=== PATIENT | female | born 1945 | race Caucasian/White ===

== ENCOUNTER 2017-10-20 14:24 | Emergency (ER) | payer OTHER ==
[~2017-10-20] VITALS: Ht 154.9 cm; Wt 75.9 kg
[2017-10-20 16:53] VITALS: BP 138/78
== END 2017-10-20 16:54 | disposition home or self-care (01) ==
LOC: ER 14:25
DX: S20.212A Contusion of left front wall of thorax, initial encounter (principal); S80.02XA Contusion of left knee, initial encounter; Z88.0 Allergy status to penicillin; V89.2XXA Person injured in unspecified motor-vehicle accident, traffic, initial encounter; Y93.89 Activity, other specified; Y92.89 Other specified places as the place of occurrence of the external cause; Y99.8 Other external cause status
CPT/HCPCS: 71046; 73564; 93005; 99284

== ENCOUNTER 2020-08-20 11:04 | Emergency (ER) | payer MEDICARE, BC ==
[~2020-08-20] VITALS: Ht 154.9 cm; Wt 73.4 kg
[2020-08-20 11:19] VITALS: BP 115/65
[2020-08-20] MEDS ORDERED: AMOX-580 PO (13:12)
[2020-08-20] MEDS ORDERED: TETanus/Pertussis (Acell)/Diphther VAC/PF (Tdap-Adult) 0.5ml syringe IMVAC ONE (13:15)
== END 2020-08-20 13:23 | disposition home or self-care (01) ==
LOC: ER 11:09
DX: L03.012 Cellulitis of left finger (principal); Z88.0 Allergy status to penicillin; Z79.899 Other long term (current) drug therapy; W54.0XXA Bitten by dog, initial encounter; Y93.89 Activity, other specified; Y92.89 Other specified places as the place of occurrence of the external cause; Y99.8 Other external cause status
CPT/HCPCS: 90471; 90715; 99283

== ENCOUNTER 2021-01-24 12:47 | Inpatient (IN) | payer MEDICARE, BC ==
[2021-01-24] VITALS (12 sets, daily range): BP systolic 118–148; BP diastolic 59–96
[~2021-01-24] VITALS: Ht 154.9 cm; Wt 70.5 kg
[2021-01-24] MEDS ORDERED: normal saline 1000ML IV soln IVB ONE (13:10)
[2021-01-24] MEDS ORDERED: ondansetron/PF 4mg/2ml inj IV ONE ×2 (13:10→16:40)
[2021-01-24 13:37] LABS: BASOPHILS % (AUTO) 0.1 % (0-1); EOSINOPHILS # (AUTO) 0.1 X10'3 (0-0.9); EOSINOPHILS % (AUTO) 0.3 % (0-6); HEMOGLOBIN 12.7 g/dl (12.0-16.0); LYMPHOCYTES % (AUTO) 6.5 % (21-51); MEAN CORPUSCULAR HEMOGLOBIN 29.8 PG (27.0-31.0); MEAN CORPUSCULAR HGB CONC 33.3 g/dL (33.0-36.5); MEAN CORPUSCULAR VOLUME 89.3 FL (78-98); MEAN PLATELET VOLUME 8.4 FL (7.4-10.4); MONOCYTES # (AUTO) 0.9 X10'3 (0-0.9); MONOCYTES % (AUTO) 5.8 % (2-12); NEUTROPHILS % (AUTO) 87.3 % (42-75); PLATELET COUNT 271 X10'3 (140-440); RED BLOOD COUNT 4.26 X10'6 (4.20-5.60); RED CELL DISTRIBUTION WIDTH 13.7 % (11.5-14.5); WHITE BLOOD COUNT 14.9 X10'3 (4.5-11.0)
[2021-01-24 13:52] LABS: ALANINE AMINOTRANSFERASE 17 U/L (12-78); ALBUMIN 3.3 G/DL (3.4-5.0); ALBUMIN/GLOBULIN RATIO 0.7 (1.1-1.5); ALKALINE PHOSPHATASE 115 IU/L (46-116); ANION GAP 13 (8-16); ASPARTATE AMINO TRANSFERASE 13 U/L (10-37); BILIRUBIN,TOTAL 0.6 MG/DL (0.1-1.0); BLOOD UREA NITROGEN 18 MG/DL (7-18); BUN/CREATININE RATIO 17.3 (6.6-38.0); CALCIUM 9.4 MG/DL (8.5-10.1); CHLORIDE 96 MMOL/L (99-107); CREATININE 1.04 MG/DL (0.40-0.90); GLUCOSE 136 MG/DL (70-104); LIPASE < 50 U/L (73-393); POTASSIUM 3.8 MMOL/L (3.5-5.1); SODIUM 134 MMOL/L (135-145); TOTAL PROTEIN 8.2 G/DL (6.4-8.2); eGFR 52 ML/MIN
[2021-01-24] MEDS ORDERED: cefepime 2g/NS 100ml ADVANTAGE 100 ML IV STA (16:21)
[2021-01-24] MEDS ORDERED: normal saline 1000ML IV soln IV ONE ×2 (16:25→16:45)
[2021-01-24] MEDS ORDERED: morphine 4 MG/ML inj SYRINge IV ONE (16:40)
[2021-01-24] MEDS ORDERED: SIMV-42 PO (17:13)
[2021-01-24] MEDS ORDERED: TOPI25TA49 PO (17:13)
[2021-01-24] MEDS ORDERED: ESCI20TA39 PO (17:13)
[2021-01-24] MEDS ORDERED: HYDR-3972 PO (17:13)
[2021-01-24] MEDS ORDERED: IMIP100C4 PO (17:13)
[2021-01-24] MEDS ORDERED: LISI-790 PO (17:13)
[2021-01-24] MEDS ORDERED: GABA-530 PO (17:13)
[2021-01-24] MEDS: morphine 4 MG/ML inj SYRINge IV PRN (17:27)
[2021-01-24] MEDS ORDERED: HYDROcodone/acetaminophen 5mg/325mg tablet PO PRN (17:30)
[2021-01-24] MEDS ORDERED: mag hydrox/Alum hydrox/simeth 30ml oral suspension PO PRN (17:30)
[2021-01-24] MEDS ORDERED: magnesium hydroxide 30ml (MOM) UD suspension PO PRN (17:30)
[2021-01-24] MEDS ORDERED: acetaminophen 325mg tablet PO PRN ×2 (17:30)
[2021-01-24] MEDS ORDERED: morphine 2 MG/ML inj. syringe IV PRN ×2 (17:30→17:50)
[2021-01-24] MEDS ORDERED: HYDROcodone/acetaminophen 10/325mg tab PO PRN ×2 (17:35→20:05)
[2021-01-24] MEDS ORDERED: ringers solution, lacted 1,000 ML IV SCH (17:50)
[2021-01-24] MEDS ORDERED: meperidine/PF 25mg/ml syringe IV PRN ×3 (17:50)
[2021-01-24] MEDS ORDERED: morphine 4 MG/ML inj SYRINge IV PRN (17:50)
[2021-01-24] MEDS ORDERED: proCHLORperazine 10 MG/2 ml inj IV PRN (17:50)
[2021-01-24] MEDS ORDERED: ondansetron/PF 4mg/2ml inj IV PRN ×2 (17:50→20:05)
--- NOTE | 2021-01-24 18:04 | NUR ---
pt taken to OR
[2021-01-24] MEDS ORDERED: BUPIVAcaine 0.5% inj/PF 30 ML ONE (18:17)
[2021-01-24] MEDS ORDERED: dexamethasone sod phosphate 10mg/ml inj ONE (18:36)
[2021-01-24] MEDS ORDERED: desflurane 240ml liquid inh. IH ONE (18:36)
[2021-01-24] MEDS ORDERED: neostigmine methylsulfate 1 MG/ML 10ml vial ONE (18:36)
[2021-01-24] MEDS ORDERED: glycopyrrolate 0.2mg/ml inj ONE (18:36)
[2021-01-24] MEDS ORDERED: fentaNYL/PF 50MCG/1 ML 2ML syringe ONE (18:42)
[2021-01-24] MEDS ORDERED: midazolam 1 mg/ML 2ml injection ONE (18:42)
[2021-01-24] MEDS ORDERED: propofol inj 20 ML IV ONE (18:43)
[2021-01-24] MEDS ORDERED: LIDOcaine 2% (20mg/ml) 5ml vial ONE (18:43)
[2021-01-24] MEDS ORDERED: rocuronium 10mg/ml inj IV ONE (18:46)
[2021-01-24] MEDS ORDERED: ondansetron/PF 4mg/2ml inj ONE (18:52)
[2021-01-24] MEDS ORDERED: clindamycin phosphate 150mg/ml inj. ONE (19:00)
[2021-01-24] MEDS ORDERED: meperidine/PF 25mg/ml syringe ONE (19:37)
[2021-01-24] MEDS ORDERED: BUPIVACAINE liposomal/PF 13.3 MG/ML vial IM ONE (19:43)
--- NOTE | 2021-01-24 20:25 | NUR ---
Received from OR via BED, accompanied by Anesthesiologist MARLO and report given by Anesthesiolgist. PT DROWSY, OXYGENATING WELL ON 10 LPM O2 VIA MASK, NO RESP DISTRESS NOTED. DENIES NAUSEA AT THIS TIME, VERY MILD INCISIONAL PAIN, PT HAD TAP BLOCK DONE IN OR. BULKY DSG TO MIDLINE ABD, CDI. MARIA DEL ROSARIO DRAIN TO ABDOMEN, GOOD SX. SM SERO/SANG OUTPUT. FC PATENT, SCDS ON. VSS.
--- NOTE | 2021-01-24 21:01 | NUR ---
Received report from Jazmin SYLVESTER in the recovery room. nursing clinical director stated that she is not sure where her belongings went and that she would contact the ER to see if they were returned to there. Pt arrived on her bed with her at bedside, A/O x4. She was on 2L oxygen via nasal cannula, with NS running @ 100 mls/hr. Dressing to abdomen was CD&I. Pt has no signs of distress, will continue to monitor.
--- NOTE | 2021-01-24 21:25 | NUR ---
Report called to receiving nurse. Transferred via BED. Belongings, 1 BAG OF CLOTHING. NOT WITH SPOUSE, ATTEMPTING TO LOCATE. OR CHG NURSE AND FLOOR RN AWARE. PAIN LEVEL CREEPING UP, PT MEDICATED WITH IVP DEMEROL PRIOR TO TRANSFER. TOLERATING ICE CHIPS WELL. VSS. AT BEDSIDE. TRANSFERRED TO 3 [facility] IN STABLE CONDITION. Special Issues communicated to receiving nurse.
[2021-01-24] MEDS: docusate sod 100mg capsule PO SCH (22:48)
[2021-01-24] MEDS: atorvastatin 10mg tablet PO SCH (22:49)
[2021-01-24] MEDS: morphine 2 MG/ML inj. syringe IV PRN (22:50)
[2021-01-24] MEDS: potassium CL 20mEq in D5-1/2NS 1,000 ML IV SCH (23:01)
[2021-01-24] MEDS: dextrose 5%-1/2 normal saline 1,000 ML IV SCH (23:20)
[2021-01-24] MEDS: imipramine 25mg tablet PO SCH (23:24)
[2021-01-25] VITALS (8 sets, daily range): BP systolic 105–156; BP diastolic 62–85
[2021-01-25] MEDS ORDERED: cefoxitin sod inj 2,000 MG in normal saline 100ml IV soln 100 ML IV SCH ×2
[2021-01-25] MEDS: metroNIDAZOLE-Flagyl 500mg/NS 100 ML IV SCH ×3 (00:01→17:01)
[2021-01-25] MEDS: HYDROcodone/acetaminophen 10/325mg tab PO PRN ×4 (01:44→17:02)
[2021-01-25] MEDS: dextrose 5%-1/2 normal saline 1,000 ML IV SCH ×2 (03:30→13:30)
[2021-01-25] MEDS: potassium CL 20mEq in D5-1/2NS 1,000 ML IV SCH ×2 (04:05→10:23)
[2021-01-25 05:41] LABS: BASOPHILS % (AUTO) 0.1 % (0-1); EOSINOPHILS % (AUTO) 0 % (0-6); HEMATOCRIT 33.5 % (35.0-45.0); HEMOGLOBIN 11.1 g/dl (12.0-16.0); LYMPHOCYTES # (AUTO) 0.5 X10'3 (1.1-4.8); LYMPHOCYTES % (AUTO) 4.1 % (21-51); MEAN CORPUSCULAR HEMOGLOBIN 29.9 PG (27.0-31.0); MEAN CORPUSCULAR HGB CONC 33.3 g/dL (33.0-36.5); MEAN CORPUSCULAR VOLUME 89.8 FL (78-98); MEAN PLATELET VOLUME 8.5 FL (7.4-10.4); MONOCYTES # (AUTO) 0.6 X10'3 (0-0.9); MONOCYTES % (AUTO) 5.3 % (2-12); NEUTROPHILS # (AUTO) 9.9 X10'3 (1.8-7.7); NEUTROPHILS % (AUTO) 90.5 % (42-75); PLATELET COUNT 227 X10'3 (140-440); RED BLOOD COUNT 3.73 X10'6 (4.20-5.60); RED CELL DISTRIBUTION WIDTH 13.7 % (11.5-14.5); WHITE BLOOD COUNT 10.9 X10'3 (4.5-11.0)
[2021-01-25 05:50] LABS: ALBUMIN 2.4 G/DL (3.4-5.0); ANION GAP 13 (8-16); BLOOD UREA NITROGEN 15 MG/DL (7-18); BUN/CREATININE RATIO 17.4 (6.6-38.0); CALCIUM 7.6 MG/DL (8.5-10.1); CHLORIDE 102 MMOL/L (99-107); CREATININE 0.86 MG/DL (0.40-0.90); GLUCOSE 227 MG/DL (70-104); POTASSIUM 4.1 MMOL/L (3.5-5.1); SODIUM 134 MMOL/L (135-145); TOTAL CARBON DIOXIDE 19.2 MMOL/L (24-32); eGFR 65 ML/MIN
[2021-01-25] MEDS: morphine 2 MG/ML inj. syringe IV PRN (05:50)
--- NOTE | 2021-01-25 06:36 | NUR ---
Problems reprioritized. Patient report given, questions answered & plan of care reviewed with Karma SYLVESTER.
--- NOTE | 2021-01-25 06:36 | NUR ---
Traveler documentation: I have reviewed and agree with all interventions, assessments performed and documented by Shaila SYLVESTER .
[2021-01-25] MEDS ORDERED: topiramate 25mg tablet PO SCH (08:00)
[2021-01-25] MEDS: levoFLOXACIN-Levaquin 500mg/D5 100 ML IV SCH (08:19)
[2021-01-25] MEDS: ESCITALOPRAM OXALATE 5 MG TABLET PO SCH (08:21)
[2021-01-25] MEDS: docusate sod 100mg capsule PO SCH ×2 (08:21→19:46)
[2021-01-25] MEDS: lisinopril 5mg tablet PO SCH (08:22)
[2021-01-25] MEDS: HYDROmorphone inj. 0.5 MG/0.5 ML DISP.SYRIN IV PRN (10:27)
[2021-01-25] MEDS: ondansetron/PF 4mg/2ml inj IV PRN ×2 (14:23→19:42)
[2021-01-25] MEDS: gabapentin 100mg capsule PO PRN (17:02)
--- NOTE | 2021-01-25 17:41 | NUR ---
Pt. c/o nausea after FL diet for lunch. Downgraded to clears for comfort.
--- NOTE | 2021-01-25 18:53 | NUR ---
Gave report to Javier redding RN.
[2021-01-25] MEDS: imipramine 25mg tablet PO SCH (19:46)
[2021-01-25] MEDS: lactobacillus rhamnosus 10,000 MMU CELLS/CAPSULE PO SCH (19:46)
[2021-01-25] MEDS: atorvastatin 10mg tablet PO SCH (19:46)
[2021-01-26] MEDS: metroNIDAZOLE-Flagyl 500mg/NS 100 ML IV SCH ×3 (01:06→16:06)
[2021-01-26] MEDS: HYDROmorphone inj. 0.5 MG/0.5 ML DISP.SYRIN IV PRN (01:06)
[2021-01-26] MEDS: ondansetron/PF 4mg/2ml inj IV PRN ×3 (01:07→13:38)
[2021-01-26 06:15] LABS: BASOPHILS % (AUTO) 0.1 % (0-1); EOSINOPHILS % (AUTO) 0.1 % (0-6); HEMATOCRIT 32.1 % (35.0-45.0); HEMOGLOBIN 10.9 g/dl (12.0-16.0); LYMPHOCYTES % (AUTO) 8.2 % (21-51); MEAN CORPUSCULAR HEMOGLOBIN 29.8 PG (27.0-31.0); MEAN CORPUSCULAR HGB CONC 34.1 g/dL (33.0-36.5); MEAN CORPUSCULAR VOLUME 87.6 FL (78-98); MEAN PLATELET VOLUME 8.1 FL (7.4-10.4); MONOCYTES # (AUTO) 1.2 X10'3 (0-0.9); NEUTROPHILS # (AUTO) 10.2 X10'3 (1.8-7.7); NEUTROPHILS % (AUTO) 81.6 % (42-75); PLATELET COUNT 313 X10'3 (140-440); RED BLOOD COUNT 3.67 X10'6 (4.20-5.60); RED CELL DISTRIBUTION WIDTH 13.6 % (11.5-14.5); WHITE BLOOD COUNT 12.5 X10'3 (4.5-11.0)
[2021-01-26 06:22] LABS: ALBUMIN 2.4 G/DL (3.4-5.0); ANION GAP 13 (8-16); BLOOD UREA NITROGEN 15 MG/DL (7-18); BUN/CREATININE RATIO 19.5 (6.6-38.0); CALCIUM 8.1 MG/DL (8.5-10.1); CHLORIDE 99 MMOL/L (99-107); CREATININE 0.77 MG/DL (0.40-0.90); GLUCOSE 137 MG/DL (70-104); POTASSIUM 3.9 MMOL/L (3.5-5.1); SODIUM 133 MMOL/L (135-145); TOTAL CARBON DIOXIDE 20.9 MMOL/L (24-32); eGFR 73 ML/MIN
--- NOTE | 2021-01-26 06:34 | NUR ---
Patient in room [facility] 348. I have received report from rayray lin and had the opportunity to ask questions and assume patient care.
[2021-01-26] MEDS: lactobacillus rhamnosus 10,000 MMU CELLS/CAPSULE PO SCH ×2 (07:08→19:46)
[2021-01-26] MEDS: ESCITALOPRAM OXALATE 5 MG TABLET PO SCH (07:09)
[2021-01-26] MEDS: HYDROcodone/acetaminophen 10/325mg tab PO PRN ×2 (07:11→14:09)
[2021-01-26] MEDS: lisinopril 5mg tablet PO SCH (07:11)
[2021-01-26] MEDS: docusate sod 100mg capsule PO SCH ×2 (07:11→19:46)
[2021-01-26 07:15] VITALS: BP 153/91
[2021-01-26] MEDS: gabapentin 100mg capsule PO PRN ×2 (07:19→14:10)
[2021-01-26] MEDS: levoFLOXACIN-Levaquin 500mg/D5 100 ML IV SCH (10:15)
[2021-01-26] MEDS: metoclopramide 5 mg/ml inj IV SCH ×3 (10:16→19:46)
[2021-01-26 11:43] VITALS: BP 150/69
[2021-01-26 19:00] VITALS: BP 176/90
[2021-01-26] MEDS: atorvastatin 10mg tablet PO SCH (19:46)
[2021-01-26] MEDS: topiramate 25mg tablet PO SCH (19:46)
[2021-01-26] MEDS: imipramine 25mg tablet PO SCH (19:47)
[2021-01-27] VITALS: BP 160/79
[2021-01-27] MEDS ORDERED: Melatonin 3mg tablet PO ONE
[2021-01-27] MEDS: metroNIDAZOLE-Flagyl 500mg/NS 100 ML IV SCH ×3 (00:07→16:10)
[2021-01-27] MEDS: HYDROcodone/acetaminophen 10/325mg tab PO PRN ×5 (00:56→21:15)
[2021-01-27] MEDS: metoclopramide 5 mg/ml inj IV SCH ×6 (02:00→21:05)
[2021-01-27 06:24] LABS: BASOPHILS % (AUTO) 0 % (0-1); EOSINOPHILS % (AUTO) 0.3 % (0-6); HEMOGLOBIN 11.5 g/dl (12.0-16.0); LYMPHOCYTES # (AUTO) 1.6 X10'3 (1.1-4.8); LYMPHOCYTES % (AUTO) 11.2 % (21-51); MEAN CORPUSCULAR HEMOGLOBIN 29.7 PG (27.0-31.0); MEAN CORPUSCULAR HGB CONC 33.9 g/dL (33.0-36.5); MEAN CORPUSCULAR VOLUME 87.4 FL (78-98); MEAN PLATELET VOLUME 7.6 FL (7.4-10.4); MONOCYTES # (AUTO) 1.5 X10'3 (0-0.9); MONOCYTES % (AUTO) 10.1 % (2-12); NEUTROPHILS # (AUTO) 11.3 X10'3 (1.8-7.7); NEUTROPHILS % (AUTO) 78.4 % (42-75); PLATELET COUNT 356 X10'3 (140-440); RED BLOOD COUNT 3.89 X10'6 (4.20-5.60); RED CELL DISTRIBUTION WIDTH 13.8 % (11.5-14.5); WHITE BLOOD COUNT 14.5 X10'3 (4.5-11.0)
[2021-01-27 06:40] LABS: ALBUMIN 2.6 G/DL (3.4-5.0); ANION GAP 15 (8-16); BLOOD UREA NITROGEN 18 MG/DL (7-18); BUN/CREATININE RATIO 20.2 (6.6-38.0); CALCIUM 8.7 MG/DL (8.5-10.1); CHLORIDE 95 MMOL/L (99-107); CREATININE 0.89 MG/DL (0.40-0.90); GLUCOSE 127 MG/DL (70-104); POTASSIUM 3.2 MMOL/L (3.5-5.1); SODIUM 132 MMOL/L (135-145); TOTAL CARBON DIOXIDE 22.1 MMOL/L (24-32); eGFR 62 ML/MIN
[2021-01-27 08:00] VITALS: BP 152/84
[2021-01-27] MEDS: ESCITALOPRAM OXALATE 5 MG TABLET PO SCH (08:09)
[2021-01-27] MEDS: docusate sod 100mg capsule PO SCH (08:11)
[2021-01-27] MEDS: lactobacillus rhamnosus 10,000 MMU CELLS/CAPSULE PO SCH ×2 (08:12→21:06)
[2021-01-27] MEDS: lisinopril 5mg tablet PO SCH (08:12)
[2021-01-27] MEDS: levoFLOXACIN-Levaquin 500mg/D5 100 ML IV SCH (09:17)
[2021-01-27] MEDS ORDERED: methylnaltrexone br 12mg/0.6ml inj***SubQ only SQ PRN (09:20)
[2021-01-27] MEDS ORDERED: Potassium Cl inj 20 MEQ in normal saline 1000ml 990 ML IV SCH (09:25)
[2021-01-27] MEDS: ondansetron/PF 4mg/2ml inj IV PRN (11:05)
[2021-01-27] MEDS: gabapentin 100mg capsule PO PRN (11:16)
[2021-01-27 11:59] VITALS: BP 163/81
[2021-01-27] MEDS: HYDROmorphone inj. 0.5 MG/0.5 ML DISP.SYRIN IV PRN (13:39)
--- NOTE | 2021-01-27 14:03 | NUR ---
PAGER ID: [phone] MESSAGE: [id number] Tatiana Kwan 3.2 can I have the replacement protocol please. [phone] Addendum: 01/27/21 at 1404 by Jacque Novak RN Order received to replace per protocol.
[2021-01-27] MEDS ORDERED: magnesium Cl slow-release 64mg tablet PO PRN (14:05)
[2021-01-27] MEDS ORDERED: magnesium 4gm in 100ml NS 100 ML IV PRN (14:05)
[2021-01-27] MEDS ORDERED: potassium Cl 20 mEq SR tablet PO PRN ×2 (14:05)
[2021-01-27] MEDS ORDERED: potassium Cl 40MEQ/1/2NS 520ml 520 ML IV PRN (14:05)
[2021-01-27] MEDS: potassium Cl 20mEq in NS 1,000 ML IV SCH ×2 (15:50→23:23)
[2021-01-27] MEDS: dextrose 5%-lactated ringers 1,000 ML IV SCH (17:40)
[2021-01-27 18:00] VITALS: BP 93/50
[2021-01-27] MEDS: K and/or MAG REPLACEMENT MC SCH (20:00)
[2021-01-27] MEDS: Melatonin 3mg tablet PO SCH (21:12)
[2021-01-27] MEDS: atorvastatin 10mg tablet PO SCH (21:12)
[2021-01-27] MEDS: enoxaparin 40mg/0.4ml syringe SUBCUT SCH (21:12)
[2021-01-27] MEDS: polyethylene glycol 3350 17gm powd pack PO SCH (21:13)
[2021-01-27] MEDS: topiramate 25mg tablet PO SCH (21:14)
[2021-01-27] MEDS: imipramine 25mg tablet PO SCH (21:14)
--- NOTE | 2021-01-27 23:32 | NUR ---
Patient in room [facility] 348. I have received report from Jacque SYLVESTER and had the opportunity to ask questions and assume patient care.
[2021-01-28] MEDS: metroNIDAZOLE-Flagyl 500mg/NS 100 ML IV SCH ×4 (00:05→23:22)
[2021-01-28 01:47] VITALS: BP 145/72
[2021-01-28] MEDS: metoclopramide 5 mg/ml inj IV SCH ×4 (02:27→19:24)
[2021-01-28] MEDS: HYDROcodone/acetaminophen 10/325mg tab PO PRN ×4 (03:54→19:24)
[2021-01-28] MEDS: dextrose 5%-lactated ringers 1,000 ML IV SCH (04:03)
[2021-01-28 06:12] LABS: BASOPHILS % (AUTO) 0.3 % (0-1); EOSINOPHILS # (AUTO) 0.2 X10'3 (0-0.9); EOSINOPHILS % (AUTO) 1.6 % (0-6); HEMATOCRIT 34.1 % (35.0-45.0); HEMOGLOBIN 11.2 g/dl (12.0-16.0); LYMPHOCYTES # (AUTO) 1.4 X10'3 (1.1-4.8); MEAN CORPUSCULAR HEMOGLOBIN 29.5 PG (27.0-31.0); MEAN CORPUSCULAR HGB CONC 32.9 g/dL (33.0-36.5); MEAN CORPUSCULAR VOLUME 89.6 FL (78-98); MEAN PLATELET VOLUME 7.7 FL (7.4-10.4); MONOCYTES # (AUTO) 1.4 X10'3 (0-0.9); MONOCYTES % (AUTO) 11.7 % (2-12); NEUTROPHILS # (AUTO) 9.3 X10'3 (1.8-7.7); NEUTROPHILS % (AUTO) 75.4 % (42-75); PLATELET COUNT 307 X10'3 (140-440); WHITE BLOOD COUNT 12.3 X10'3 (4.5-11.0)
[2021-01-28 06:16] LABS: ALBUMIN 2.3 G/DL (3.4-5.0); ANION GAP 12 (8-16); BLOOD UREA NITROGEN 16 MG/DL (7-18); BUN/CREATININE RATIO 23.2 (6.6-38.0); CALCIUM 8.2 MG/DL (8.5-10.1); CHLORIDE 102 MMOL/L (99-107); CREATININE 0.69 MG/DL (0.40-0.90); GLUCOSE 129 MG/DL (70-104); MAGNESIUM 2.3 MG/DL (1.5-2.4); POTASSIUM 3.4 MMOL/L (3.5-5.1); SODIUM 136 MMOL/L (135-145); TOTAL CARBON DIOXIDE 22.2 MMOL/L (24-32); eGFR 83 ML/MIN
--- NOTE | 2021-01-28 06:27 | NUR ---
Problems reprioritized. Patient report given, questions answered & plan of care reviewed with Carole SYLVESTER.
[2021-01-28] MEDS: potassium Cl 20mEq in NS 1,000 ML IV SCH (07:50)
[2021-01-28 08:00] VITALS: BP 148/68
[2021-01-28] MEDS: K and/or MAG REPLACEMENT MC SCH ×2 (08:00→19:55)
[2021-01-28] MEDS ORDERED: POTASSIUM BICARB 20meq eff tab 20 MEQ TABLET.EFF PO PRN (08:08)
[2021-01-28] MEDS: ESCITALOPRAM OXALATE 5 MG TABLET PO SCH (08:15)
[2021-01-28] MEDS: lisinopril 5mg tablet PO SCH (08:16)
[2021-01-28] MEDS: lactobacillus rhamnosus 10,000 MMU CELLS/CAPSULE PO SCH ×2 (08:17→19:23)
[2021-01-28] MEDS: morphine 2 MG/ML inj. syringe IV PRN (08:31)
[2021-01-28] MEDS: POTASSIUM BICARB 20meq eff tab 20 MEQ TABLET.EFF PO PRN ×3 (10:01→19:54)
[2021-01-28] MEDS: levoFLOXACIN-Levaquin 500mg/D5 100 ML IV SCH (10:47)
[2021-01-28 11:00] VITALS: BP 143/69
[2021-01-28] MEDS ORDERED: bisacodyl 10mg suppository rectal RC STA (11:58)
[2021-01-28] MEDS: normal saline 1000ml 1,000 ML IV SCH ×3 (12:49→22:27)
[2021-01-28 19:00] VITALS: BP 150/75
--- NOTE | 2021-01-28 19:18 | NUR ---
Report given to Aquiles SYLVESTER, all questions answered. Pt sitting up in chair eating CL diet.
[2021-01-28] MEDS: enoxaparin 40mg/0.4ml syringe SUBCUT SCH (19:26)
[2021-01-28] MEDS: Melatonin 3mg tablet PO SCH (21:14)
[2021-01-28] MEDS: atorvastatin 10mg tablet PO SCH (21:14)
[2021-01-28] MEDS: topiramate 25mg tablet PO SCH (21:16)
[2021-01-28] MEDS: imipramine 25mg tablet PO SCH (21:16)
[2021-01-28] MEDS: polyethylene glycol 3350 17gm powd pack PO SCH (21:17)
[2021-01-29] VITALS: BP 120/56
[2021-01-29] MEDS: metoclopramide 5 mg/ml inj IV SCH ×2 (02:58→08:31)
[2021-01-29] MEDS: HYDROcodone/acetaminophen 10/325mg tab PO PRN ×2 (05:44→10:58)
[2021-01-29 06:42] LABS: BASOPHILS % (AUTO) 0.2 % (0-1); EOSINOPHILS # (AUTO) 0.3 X10'3 (0-0.9); EOSINOPHILS % (AUTO) 2.6 % (0-6); HEMATOCRIT 31.9 % (35.0-45.0); HEMOGLOBIN 10.6 g/dl (12.0-16.0); LYMPHOCYTES # (AUTO) 1.4 X10'3 (1.1-4.8); LYMPHOCYTES % (AUTO) 11.8 % (21-51); MEAN CORPUSCULAR HEMOGLOBIN 29.2 PG (27.0-31.0); MEAN CORPUSCULAR HGB CONC 33.3 g/dL (33.0-36.5); MEAN CORPUSCULAR VOLUME 87.7 FL (78-98); MEAN PLATELET VOLUME 7.4 FL (7.4-10.4); MONOCYTES # (AUTO) 1.1 X10'3 (0-0.9); MONOCYTES % (AUTO) 9.2 % (2-12); NEUTROPHILS # (AUTO) 9.2 X10'3 (1.8-7.7); NEUTROPHILS % (AUTO) 76.2 % (42-75); PLATELET COUNT 337 X10'3 (140-440); RED BLOOD COUNT 3.64 X10'6 (4.20-5.60); RED CELL DISTRIBUTION WIDTH 13.8 % (11.5-14.5); WHITE BLOOD COUNT 12.1 X10'3 (4.5-11.0)
[2021-01-29 06:52] LABS: ALBUMIN 2.4 G/DL (3.4-5.0); ANION GAP 11 (8-16); BLOOD UREA NITROGEN 9 MG/DL (7-18); BUN/CREATININE RATIO 12.2 (6.6-38.0); CALCIUM 7.7 MG/DL (8.5-10.1); CHLORIDE 101 MMOL/L (99-107); CREATININE 0.74 MG/DL (0.40-0.90); GLUCOSE 92 MG/DL (70-104); MAGNESIUM 1.9 MG/DL (1.5-2.4); POTASSIUM 3.4 MMOL/L (3.5-5.1); SODIUM 134 MMOL/L (135-145); TOTAL CARBON DIOXIDE 22.4 MMOL/L (24-32); eGFR 77 ML/MIN
[2021-01-29 07:00] VITALS: BP 141/79
[2021-01-29] MEDS: levoFLOXACIN-Levaquin 500mg/D5 100 ML IV SCH (08:00)
[2021-01-29] MEDS: normal saline 1000ml 1,000 ML IV SCH (08:00)
[2021-01-29] MEDS: POTASSIUM BICARB 20meq eff tab 20 MEQ TABLET.EFF PO PRN (08:29)
[2021-01-29] MEDS: metroNIDAZOLE-Flagyl 500mg/NS 100 ML IV SCH (08:34)
[2021-01-29] MEDS: ESCITALOPRAM OXALATE 5 MG TABLET PO SCH (08:36)
[2021-01-29 08:37] VITALS: BP_SYST 141
[2021-01-29] MEDS: lisinopril 5mg tablet PO SCH (08:37)
[2021-01-29] MEDS: K and/or MAG REPLACEMENT MC SCH (08:38)
[2021-01-29] MEDS: lactobacillus rhamnosus 10,000 MMU CELLS/CAPSULE PO SCH (08:38)
--- NOTE | 2021-01-29 10:23 | NUR ---
Initial: Pt admitted w/ increasing abd pain and some nausea/vomiting, underwent appendectomy 01/24. Pt just advanced to Regular diet today, per RN pt was able to eat most of breakfast this morning. LBM 01/29. Will continue to monitor PO trends s/p diet advancement and make recommendations as appropriate. Recs: 1. Continue Regular diet as tolerated 2. Bowel care per rx 3. Weekly wts Addendum: 01/29/21 at [address] Amended: Links added.
[2021-01-29] MEDS ORDERED: CIPR-259 PO (11:46)
[2021-01-29] MEDS ORDERED: METR-159 PO (11:46)
--- NOTE | 2021-01-29 12:30 | NUR ---
Missing meds? When Doctor Jalen discharged patient she said she had norco at home prescribed by her pain management dr in [facility]. and there for initially she would not need any other pain meds at discharge. But a short time later her called her to ask about her medications that were left at the hospital when they were admitted. Patients felt that medications were left in the ER prior to patient going to OR. Pt states that they went straight from ER to OR and that bags were lost and a bag was eventually found the next day and brought to her but did not have her medications. Patient and signifigant other says pills were in a "saturday through saturday" pill case that held up to 30 days worth of pills, although there were less then 30 pills in case. When arrived he clarified it was only the norco he had brought and not any other pills. These pills were never documented in belongings in the ED, the ED staff looked for these medications for me and says they did not find them. Pharmacy was called as well and they have no evidence of her medications. I have notified Jacque grain shipper and Mirta SYLVESTER Nursing car installations supervisor. Mirat says there is nothing we can do about it at this point. There is no evidence of her having brought the medications in. We talked to Dr Rao who will try to call in a small amount of norco until she can talk to her pain mgt dr. He says he will talk to his staff and see about them calling meds into [facility]. Pt and aware and thankful. They are also aware that we are unsure of whether pharmacy will be able to fill perscription since she gets norco through her pain specialist.
--- NOTE | 2021-01-29 12:45 | NUR ---
Patient is discharged home with her . Drain DC'd per order. Pt will call Dr Suarez office in AM for follow up appt and staple removal. All belongings taken from room. IV taken out. Pt having bm's and no nausea. Vitals stable, walking. No current concerns.
--- NOTE | 2021-01-29 16:45 | NUR ---
confirmed with pharmacy that both abx and norco have been called in and are in process. Pt aware.
== END 2021-01-29 12:45 | disposition home or self-care (01) | DRG 342 ==
LOC: ER 12:47 → ED HOLD 17:29 → SUR 3N 21:11
PROVIDERS: ADMIT Internal Medicine; ATTEND Internal Medicine
PROC: 0WJG4ZZ Inspection of Peritoneal Cavity, Percutaneous Endoscopic Approach (ICD-10-PCS; 2021-01-24)
PROC: 3E0T3BZ Introduction of Anesthetic Agent into Peripheral Nerves and Plexi, Percutaneous Approach (ICD-10-PCS; 2021-01-24)
PROC: 3E0T33Z Introduction of Anti-inflammatory into Peripheral Nerves and Plexi, Percutaneous Approach (ICD-10-PCS; 2021-01-24)
PROC: 0DTJ0ZZ Resection of Appendix, Open Approach (ICD-10-PCS; principal; 2021-01-24 18:36)
DX: K35.891 Other acute appendicitis without perforation, with gangrene (principal); N17.9 Acute kidney failure, unspecified; K56.7 Ileus, unspecified; Z20.822 Contact with and (suspected) exposure to COVID-19; E78.5 Hyperlipidemia, unspecified; F32.9 Major depressive disorder, single episode, unspecified; K66.0 Peritoneal adhesions (postprocedural) (postinfection); E87.6 Hypokalemia; K59.00 Constipation, unspecified; G47.00 Insomnia, unspecified; G89.29 Other chronic pain; M54.9 Dorsalgia, unspecified; Z88.0 Allergy status to penicillin; Z88.8 Allergy status to other drugs, medicaments and biological substances; Z79.899 Other long term (current) drug therapy
CPT/HCPCS: 36415; 70450; 71045; 74176; 76856; 80048; 80053; 80305; 81001; 83605; 83690; 83735; 84145; 84484; 85025; 87040; 87081; 87088; 87635; 88304; 93976; 97116; 97161; 97530; 99285; A4314; A4618; A6253; A6407; A6449; A7000; C9290; C9803; G0378; J0692; J1100; J1170; J1650; J1956; J2001; J2175; J2250; J2270; J2405; J2704; J2710; J2765; J3010; J3480; J3490; J7030; J7120; J7121

== ENCOUNTER 2023-04-18 17:05 | Emergency (ER) | payer MEDICARE, BC ==
[~2023-04-18] VITALS: Ht 152.4 cm; Wt 74.5 kg
[~2023-04-18 17:05] MED LIST: ESCI20TA39 PO; GABA-530 PO; HYDR-3972 PO; IMIP100C4 PO; LISI5TAB22 PO; SIMV-42 PO; TOPI25TA49 PO
[2023-04-18 20:55] VITALS: BP 110/77; PULSE 70; RESP 16; TEMP 97.9; O2SAT 99
== END 2023-04-18 21:00 | disposition home or self-care (01) ==
LOC: ER 17:05
DX: S82.492A Other fracture of shaft of left fibula, initial encounter for closed fracture (principal); G92.9 Unspecified toxic encephalopathy; G89.29 Other chronic pain; M54.9 Dorsalgia, unspecified; Z88.0 Allergy status to penicillin; Z88.8 Allergy status to other drugs, medicaments and biological substances; Z79.899 Other long term (current) drug therapy; W18.39XA Other fall on same level, initial encounter; Y93.89 Activity, other specified; Y92.89 Other specified places as the place of occurrence of the external cause; Y99.8 Other external cause status
CPT/HCPCS: 73610; 99284